=== PATIENT | male | born 1950 | race Caucasian/White ===

== ENCOUNTER → 2016-09-03 | Outpatient (CLI) | payer OTHER ==
--- NOTE | 2016-09-03 14:17 | DI ---
INDICATION: ITS.REASON: DIAGNOSTIC TESTING PROCEDURE: CHEST 2-VIEWS UPRIGHT (PA \T\ LAT) Encounter: Initial COMPARISON: None FINDINGS: The lungs are clear without evidence of focal abnormal airspace opacity. There is no pleural effusion or pneumothorax. The heart size is at the upper limits of normal. The mediastinal contours and pulmonary vascularity are within normal limits. DISH in the thoracic spine. IMPRESSION: No acute cardiopulmonary disease. .
== END ==
LOC: IMA 13:41
DX: Z02.89 Encounter for other administrative examinations (principal)